=== PATIENT | male | born 1985 | race Caucasian/White ===

== ENCOUNTER 2017-05-30 11:44 | Emergency (ER) | payer SELFPAY ==
[2017-05-29 12:09] VITALS: O2SAT 100
[~2017-05-30] VITALS: Ht 172.7 cm; Wt 68.0 kg
[2017-05-30 11:50] VITALS: BP 138/75; PULSE 84; RESP 17; TEMP 97.8; O2SAT 98
[2017-05-30] MEDS ORDERED: MORPHINE SULFATE 4 MG/ML INJ IV PUSH ONE (12:00)
[2017-05-30] MEDS ORDERED: ETOMIDATE 20 MG/10 ML VIAL IV PUSH ONE (12:00)
[2017-05-30] MEDS ORDERED: PROPOFOL 200 MG/20 ML AMP IV ONE (12:00)
--- NOTE | 2017-05-30 12:06 | PD ---
HPI Chief Complaint: Musculoskeletal Complaint Time Seen by Provider: 11:51 Travel History International Travel<30 days: No Contact w/Intl Traveler<30days: No Traveled to known affect area: No History of Present Illness HPI 32-year-old male on vacation from [place] presents for evaluation of left shoulder pain. Prior to arrival he was swimming with his shoulder had severe pain and deformity. He feels like it is dislocated. He reports that he has dislocated his left shoulder several times in the past from benign actions. Pain is aching and worse with movement. Denies any numbness or tingling. He has no other complaints at this time. [facility] Past Medical History Tetanus Vaccination: > 5 Years Influenza Vaccination: No Past Surgical History Appendectomy: Yes Social History Alcohol Use: No Tobacco Use: No Substance Use: No Allergies-Medications (Allergen,Severity, Reaction): Coded Allergies: No Known Allergies (Verified Allergy, Unknown, 05/30/17) Review of Systems Except as stated in HPI: all other systems reviewed are Neg Physical Exam Narrative GENERAL: Well-developed well-nourished male no acute distress SKIN: Warm and dry. HEAD: Atraumatic. Normocephalic. EYES: Pupils equal and round. No scleral icterus. No injection or drainage. ENT: No nasal bleeding or discharge. Mucous membranes pink and moist. NECK: Trachea midline. No JVD. CARDIOVASCULAR: Regular rate and rhythm. No murmur appreciated. RESPIRATORY: No accessory muscle use. Clear to auscultation. Breath sounds equal bilaterally. GASTROINTESTINAL: Abdomen soft, non-tender, nondistended. MUSCULOSKELETAL: Left shoulder deformity. Limited range of motion left shoulder. 2+ radial pulse. Capillary refill less than 2 seconds all digits left hand. Distal sensation is intact. NEUROLOGICAL: Awake and alert. No obvious cranial nerve deficits. Motor grossly within normal limits. Normal speech. Data Data Last Documented VS Vital Signs Date Time Temp Pulse Resp B/P (MAP) Pulse Ox O2 Delivery O2 Flow Rate FiO2 05/30/17 12:23 76 17 136/75 (95) 100 Nasal Cannula 2.00 05/30/17 11:50 97.8 Orders Orders Shoulder, Limited(2vws) (05/30/17 ) Morphine Inj (Morphine Inj) (05/30/17 12:00) Propofol 200 Mg/20 Ml Inj (Diprivan 200 (05/30/17 12:00) Iv Access Insert/Monitor (05/30/17 11:51) Etomidate Inj (Amidate Inj) (05/30/17 12:00) Sling And Swathe (05/30/17 ) Shoulder, Limited(2vws) (05/30/17 ) [facility] Medical Decision Making Medical Screen Exam Complete: Yes Emergency Medical Condition: Yes Medical Record Reviewed: Yes Differential Diagnosis Anterior shoulder dislocation, posterior shoulder dislocation, proximal humeral fracture, acromial clavicular separation Narrative Course Clinically the patient appears to have a left shoulder dislocation and x-ray confirms anterior left shoulder dislocation. After consent was obtained procedural sedation was performed and closed reduction of left shoulder was achieved. See Dr. Castillo's note in regards to the procedural sedation. postreduction x-ray confirms reduction of the shoulder. The patient was placed in a sling and swath. He is stable for discharge. Procedures Procedure Narrative Closed reduction left shoulder: After sedation was achieved the left shoulder was reduced using traction and external rotation while the blood bank laboratory technician provided countertraction. Patient tolerated procedure well. Postreduction capillary refill is less than 2 seconds all digits left hand and 2 + radial pulse was palpable. Diagnosis Primary Impression: Dislocation of left shoulder joint Referrals: Orthopedist Additional Instructions: Sling and swath. Tylenol or Motrin for pain. Follow-up with an orthopedist in [place] and return for any emergent medical conditions. Med/Other Pt SpecificInfo: Orthopedic Instructions Disposition: 01 DISCHARGE HOME Condition: Stable Brendan Christie May 30, 2017 12:06
[2017-05-30 12:09] VITALS: O2SAT 100
--- NOTE | 2017-05-30 12:19 | RADRPT ---
EXAM DATE/TIME: 05/30/2017 12:08 [facility] COMPARISON: No previous studies available for comparison. INDICATIONS : Left shoulder pain, no known injury. MEDICAL HISTORY : None. SURGICAL HISTORY : None. ENCOUNTER: Initial ACUITY: 1 day PAIN SCORE: 10/10 LOCATION: Left Shoulder. FINDINGS: There is an anterior shoulder dislocation with no evidence of fracture. The humeral head lies below t he coracoid process. There is mild soft tissue prominence. CONCLUSION: Anterior shoulder dislocation. Gael Lezama MD on May 30, 2017 at 12:17 Board Certified Radiologist. This report was verified electronically.
[2017-05-30 12:23] VITALS: BP 136/75; PULSE 76; RESP 17; O2SAT 100
--- NOTE | 2017-05-30 12:33 | RADRPT ---
EXAM DATE/TIME: 05/30/2017 12:21 [facility] COMPARISON: SHOULDER LEFT LTD (2VWS), May 30, 2017, 12:08. INDICATIONS : Post reduction, left shoulder. MEDICAL HISTORY : None. SURGICAL HISTORY : None. ENCOUNTER: Initial ACUITY: 1 day PAIN SCORE: 8/10 LOCATION: Left Shoulder. FINDINGS: Two view examination of the left shoulder demonstrates reduction of the previously noted anterior anamaria ulder dislocation. The glenohumeral and acromioclavicular joints are maintained. Bony mineralization is normal. CONCLUSION: Reduction of the previously noted anterior shoulder dislocation. There is no fracture . Gael Lezama MD on May 30, 2017 at 12:30 Board Certified Radiologist. This report was verified electronically.
--- NOTE | 2017-05-30 12:39 | PD ---
Data Data Last Documented VS Vital Signs Date Time Temp Pulse Resp B/P (MAP) Pulse Ox O2 Delivery O2 Flow Rate FiO2 05/30/17 13:00 97.8 76 16 124/81 (95) 100 05/30/17 12:23 Nasal Cannula 2.00 Orders Orders Shoulder, Limited(2vws) (05/30/17 ) Morphine Inj (Morphine Inj) (05/30/17 12:00) Propofol 200 Mg/20 Ml Inj (Diprivan 200 (05/30/17 12:00) Iv Access Insert/Monitor (05/30/17 11:51) Etomidate Inj (Amidate Inj) (05/30/17 12:00) Sling And Swathe (05/30/17 ) Shoulder, Limited(2vws) (05/30/17 ) Ed Discharge Order (05/30/17 12:39) Sling And Swathe (05/30/17 ) MDM Supervised Visit with BETH: Yes Narrative Course I, Dr. Castillo, have reviewed the advance practice practitioner's documentation and am in agreement, met with the patient face to face, made the diagnosis, and the medical decision making was done by me. *My assessment and Findings: Patient seen and examined by me in addition to Brendan Christie, is obvious dislocation of the left glenohumeral fossa, I have sedated and he and the [employer] of reduced. Regained full consciousness, placed in sling and swath, follow-up with orthopedic surgeon Procedures Procedure Narrative After the risks and benefits were discussed the following procedure was performed all risk benefits competitions and alternatives of both the reduction and sedation were discussed with the patient by me. He signed formal consent peer: MODERATE SEDATION: The patient was placed on a cardiac tech and pulse oximetry. An ambu bag and suction was immediately available at bedside. The patient was monitored by the nurse. Oxygen saturation , heart rate and blood pressure were monitored. Procedural sedation was acheived using a total of 10 mg of time. The patient was observed until awake and alert. Procedural Sedation time in attendance was less than 10 minute minutes. Please see procedural documentation for further details Diagnosis Primary Impression: Dislocation of left shoulder joint Referrals: Orthopedist Additional Instruction: Sling and swath. Tylenol or Motrin for pain. Follow-up with an orthopedist in [place] and return for any emergent medical conditions. Disposition: 01 DISCHARGE HOME Condition: Stable Nabil Castillo MD May 30, 2017 12:39
[2017-05-30 13:00] VITALS: BP 124/81; TEMP 97.8
== END 2017-05-30 13:00 | disposition home or self-care (01) ==
LOC: NEPC 11:44
DX: S43.015A Anterior dislocation of left humerus, initial encounter (principal); X50.9XXA Other and unspecified overexertion or strenuous movements or postures, initial encounter; Y93.11 Activity, swimming
CPT/HCPCS: 23650; 73030; 96374; 99285; J2270